=== PATIENT | female | born 1945 | race Caucasian/White ===

== ENCOUNTER → 2017-10-27 | Day surgery (SDC) | payer MEDICARE ==
[2017-10-26 13:10] LABS: BASOPHILS # (AUTO) 0.1 (0.0-0.1); BASOPHILS % 1.2 % (0.0-1.0); EOSINOPHILS # (AUTO) 0.2 (0.0-0.4); HEMATOCRIT 40.1 % (34.2-44.1); HEMOGLOBIN 13.2 g/dL (12.0-16.0); LYMPHOCYTES # (AUTO) 1.9 (1.0-3.2); MEAN CORPUSCULAR HEMOGLOBIN 31.4 pg (28-32); MEAN CORPUSCULAR HGB CONC 32.9 g/dL (31-35); MEAN CORPUSCULAR VOLUME 95.2 fL (81-99); MONOCYTES # (AUTO) 0.6 (0.2-0.8); MONOCYTES % 8.4 % (4.4-11.3); NEUTROPHILS # (AUTO) 4.2 (2.1-6.9); NEUTROPHILS % 60.3 % (38.7-80.0); PLATELET COUNT 258 x10e3/uL (140-360); RED BLOOD COUNT 4.21 x10e6/uL (3.6-5.1); RED CELL DISTRIBUTION WIDTH 15.6 % (11.7-14.4)
[2017-10-26 13:17] LABS: INR 0.86; PROTHROMBIN TIME 12.2 seconds (11.9-14.5)
[2017-10-26 13:29] LABS: ALBUMIN 3.9 g/dL (3.5-5.0); ALBUMIN/GLOBULIN RATIO 1.1 (0.8-2.0); ANION GAP 12.8 mmol/L (8-16); CALCIUM 9.5 mg/dL (8.4-10.2); CHOL/HDL RATIO 2.7 (3.0-3.6); CREATININE, SERUM 0.98 mg/dL (0.57-1.11); POTASSIUM 4.8 mmol/L (3.5-5.1)
[~2017-10-27] VITALS: Ht 152.4 cm; Wt 44.9 kg
[~2017-10-27] MED LIST: ASPIR-LOW81 MG PO; FENTANYL CITRATE/PF 100MCG/2 ML INJ ONE; HEPARIN SOD/SOD CHLORIDE 2,000 ML ONE; IOPAMIDOL 370 MG/ML 200 ML INFUS..BTL INJ ONE; LASIX20 MG PO; LIDOCAINE HCL 2% LOCAL 20 ML VIAL ONE; LISINOPRIL10 MG PO; MIDAZOLAM HCL 2 MG/2 ML VIAL ONE; PAXIL CR12.5 MG PO; TOPAMAX25 MG PO; TRAZODONE HCL50 MG PO; VITAMIN B-121000 MCG PO; VITAMIN D1000 UNI1 PO; ZOMIG5 MG PO
--- NOTE | 2017-10-28 11:17 | Operative Report ---
DATE OF PROCEDURE: October 27, 2017 INDICATIONS: Coronary artery disease. PROCEDURES PERFORMED: 1. Left heart catheterization, selective coronary angiography. 2. Deployment of right groin Angio-Seal. COMPLICATIONS: None. RECOMMENDATIONS: Medical therapy with CT of the chest to assess aneurysm. Access obtained in the right femoral artery. A 6-Maori sheath was placed. Left coronary system was dominant. Minimal coronary artery disease. A 10% to 20% luminal irregularities. Excellent flow. No critical stenosis or occlusions. Right coronary artery is non-dominant. JL5 was used to cannulate the left coronary system. Right groin repaired using Angio-Seal. Patient discharged home same day. Job#: [id number]
== END | disposition home or self-care (01) ==
LOC: CATH LAB 05:00
PROVIDERS: ATTEND Internal Medicine Interventional Cardiology
DX: I25.119 Atherosclerotic heart disease of native coronary artery with unspecified angina pectoris (principal); I11.0 Hypertensive heart disease with heart failure; I50.9 Heart failure, unspecified; R94.39 Abnormal result of other cardiovascular function study; Z01.812 Encounter for preprocedural laboratory examination; Z82.49 Family history of ischemic heart disease and other diseases of the circulatory system
CPT/HCPCS: 36415; 80053; 80061; 85025; 85610; 93458; J2001; J2250; Q9967; 36140

== ENCOUNTER → 2017-11-06 | Outpatient (CLI) | payer MEDICARE ==
[~2017-11-06] MED LIST changes: -FENTANYL CITRATE/PF 100MCG/2 ML INJ ONE; -HEPARIN SOD/SOD CHLORIDE 2,000 ML ONE; -LIDOCAINE HCL 2% LOCAL 20 ML VIAL ONE; -MIDAZOLAM HCL 2 MG/2 ML VIAL ONE; +SODIUM CHLORIDE 0.9% 100 ML 100 ML ONE; +SODIUM CHLORIDE 0.9% 250ML 500 ML ONE
[2017-11-06 07:51] LABS: CREATININE, SERUM 0.96 mg/dL (0.57-1.11)
--- NOTE | 2017-11-06 09:21 | Diagnostic Imaging Report ---
CT scan chest. November 06, 2017 Clinical history: Aortic aneurysm Technique: Arterial phase CT chest performed after 100 mL Isovue-370 intravenous contrast. No enteric contrast. Coronal, sagittal and axial images generated from source data. 3-D volume rendered images of the aorta were generated at an independent workstation under physician supervision. Dose: 159.37 mGy-cm Comparison: None Findings: Aortic measurements at the level of: Valvular plane: 2.1 cm Sinus of Valsalva: 3.2 cm Sinotubular junction: 2.2 cm Aortic root: 2.8 cm Ascending aorta: 4 cm Proximal aortic arch: 2.8 cm Distal aortic arch: 2.8 cm Isthmus: 2.8 cm Distal descending aorta: 2.4 cm The aorta is tortuous throughout its length with mild atherosclerosis. No evidence of dissection, intramural hematoma or pseudoaneurysm. The left vertebral artery originates from the distal arch. Great vessels are otherwise with normal branching pattern. Mild atherosclerosis of the innominate artery origin. Image portions of the abdominal aorta are normal. Pulmonary arteries: Main PA diameter 2.6 cm. Mild prominence of the intraparenchymal pulmonary arteries. Heart and pericardium: Normal overall size, with mild prominence of the right atrium and ventricle. No pericardial effusion. Imaged segments of the coronary arteries are grossly unremarkable. Lungs: Biapical pleural parenchymal scar with a right apical 2 x 0.9 x 1.3 cm nodular component. Biapical centrilobular emphysema. Pleura: No effusions. Airways: Normal Lymph nodes: 1.9 x 1.8 cm right periaortic node within the posterior mediastinum (image 43, series 3). Skeleton: Intact. Soft tissues: Normal Impression: 1. Ascending aorta ectasia, with a maximal diameter of 4 cm. 2. Emphysema. 3. Biapical pleural-parenchymal scarring and thickening. Superimposed 2 x 0.9 x 1.3 cm right apical nodule, which may be a component of the noted scarring, or a superimposed nodule. 4. Posterior mediastinal lymphadenopathy measuring up to 1.8 cm. 5. Given the above noted pleural parenchymal scar/right apical nodularity and posterior mediastinal lymphadenopathy PET/CT is recommended to evaluate for further characterization of these findings. This report was generated with voice-recognition technology. Errors in air conditioner installer helper can occur. Please interpret accordingly and contact a radiologist if there are any questions regarding the report. Signed by: Dr. Daniel Maya M.D. on 11/06/2017 9:18 AM
== END ==
LOC: CT 07:02
PROVIDERS: ATTEND Internal Medicine Interventional Cardiology
DX: I71.2 Thoracic aortic aneurysm, without rupture (principal)
CPT/HCPCS: 36415; 71275; 82565; 84520; J7050; Q9967

== ENCOUNTER → 2018-07-08 | Outpatient (CLI) | payer MEDICARE, OTHER ==
[~2018-07-08] MED LIST changes: -IOPAMIDOL 370 MG/ML 200 ML INFUS..BTL INJ ONE; -SODIUM CHLORIDE 0.9% 100 ML 100 ML ONE; -SODIUM CHLORIDE 0.9% 250ML 500 ML ONE
--- NOTE | 2018-07-08 14:42 | Diagnostic Imaging Report ---
EXAM: CT Chest WITHOUT contrast 07/08/2018 12:55 PM INDICATION: \[id number] \S\1250 \S\PULMONARY OPACITIES COMPARISON: CTA chest 11/06/2017 TECHNIQUE: Chest was scanned utilizing a multidetector helical scanner from the lung apex through the level of the adrenal glands without administration of IV contrast. Absence of intravenous contrast decreases sensitivity for detection of lymphadenopathy and vascular pathology. Coronal and sagittal reformations were obtained. Routine protocol was performed. IV CONTRAST: None COMPLICATIONS: None RADIATION DOSE: Total DLP: 88.8 mGy*cm Estimated effective dose: (DLP x 0.015 x size factor) mSv CTDIvol has been reviewed. It is below the limits set by the Radiation Protocol Committee (RPC). FINDINGS: LINES/ TUBES: None. LUNGS AND AIRWAYS: Bilateral apical pleuroparenchymal scarring with a more discrete pleural-based right apical nodule measuring 13 x 17 mm remain stable since 11/06/2017. Few right apical calcified granuloma are also stable. Moderate bilateral upper lobe predominant centrilobular and paraseptal emphysema, stable. No new pulmonary nodules or consolidations. Airways are normal. PLEURA: The pleural spaces are clear. HEART AND MEDIASTINUM: The thyroid gland is normal. Stable 1.8 cm subcarinal noncalcified lymph node on series 3, image 42. No new lymphadenopathy. The heart is within normal limits. Moderate coronary artery calcifications. Stable ectasia of the ascending thoracic aorta (4 cm). There is no pericardial effusion. The main pulmonary artery normal in caliber. The thoracic aorta and pulmonary arteries are unremarkable. UPPER ABDOMEN: Unremarkable. BONES: Mild multilevel degenerative changes of the thoracic spine. SOFT TISSUES: Unremarkable. IMPRESSION: 1. Stable biapical pleuroparenchymal scarring with a more discrete 13 x 17 mm right apical pleural-based nodule since 11/06/2017. 2. Moderate bilateral emphysema. 3. Stable 1.8 cm subcarinal lymph node. Recommend follow-up CT chest without contrast in 12 months to demonstrate stability. Signed by: Dr. Sheila Marie M.D. on 07/08/2018 2:39 PM
== END ==
LOC: CT 12:43
PROVIDERS: ATTEND Internal Medicine
DX: J44.9 Chronic obstructive pulmonary disease, unspecified (principal)
CPT/HCPCS: 71250

== ENCOUNTER → 2018-09-29 | Outpatient (CLI) | payer MEDICARE, OTHER ==
--- NOTE | 2018-09-29 14:35 | Diagnostic Imaging Report ---
MRI SPINE LUMBAR WO HISTORY: Low back pain, lumbar spinal stenosis COMPARISON: Chest CT 07/08/2018 and 11/06/2017 TECHNIQUE: Sagittal T1, sagittal T2, sagittal STIR, axial T2, coronal T2, and axial proton density weighted images of the lumbar spine were obtained without contrast. DISCUSSION: Number of non-rib bearing lumbar vertebral bodies: 5. Alignment: Normal lordosis. Mild thoracolumbar dextroscoliosis is centered at approximately L1. Mild compensatory lumbar levoscoliosis is centered at approximately L4-L5. Vertebrae: No fractures, infection or neoplasm. Conus medullaris: Normal, ends at approximately L1-L2. Cauda equina: No masses or arachnoiditis. Posterior paraspinal muscles: Well preserved. No signal abnormalities. Soft tissues: No signal abnormalities. Mild to moderate multilevel disc degeneration is most prominent at L2-L3 and L4-L5. T12-L1: Mild left foraminal stenosis due to disc bulge and facet arthrosis. No significant canal or right foraminal stenosis. L1-L2: Mild left foraminal stenosis due to disc bulge and facet arthrosis. No significant canal or right foraminal stenosis. L2-L3: Mild left foraminal stenosis due to disc bulge and facet arthrosis. No significant canal or right foraminal stenosis. L3-L4: Mild bilateral foraminal stenoses due to disc bulge and facet arthrosis. No significant canal stenosis. L4-L5: Moderate right and mild left foraminal stenoses due to disc bulge and facet arthrosis. No significant canal stenosis. L5-S1: Moderate right and left foraminal stenoses due to disc bulge and facet arthrosis. No significant canal stenosis. IMPRESSION: 1. Mild to moderate multilevel disc degeneration, most prominent at L2-L3 and L4-L5. Associated mild thoracolumbar dextroscoliosis with mild compensatory lumbar levoscoliosis. 2. Multilevel bilateral degenerative foraminal stenoses - moderate on the right at L4-L5 and L5-S1. 3. No significant canal stenosis. Signed by: Dr. Hiro Kay M.D. on 09/29/2018 2:32 PM
== END ==
LOC: MRI 10:31
PROVIDERS: ATTEND Radiology Neuroradiology
DX: M48.061 Spinal stenosis, lumbar region without neurogenic claudication (principal)
CPT/HCPCS: 72148

== ENCOUNTER → 2018-10-09 | Outpatient (CLI) | payer MEDICARE, OTHER ==
[2018-10-09 08:57] LABS: BASOPHILS # (AUTO) 0.1 (0.0-0.1); BASOPHILS % 0.8 % (0.0-1.0); EOSINOPHILS # (AUTO) 0.4 (0.0-0.4); EOSINOPHILS % 6.6 % (0.0-6.0); HEMATOCRIT 41.4 % (34.2-44.1); HEMOGLOBIN 13.7 g/dL (12.0-16.0); LYMPHOCYTES # (AUTO) 1.8 (1.0-3.2); LYMPHOCYTES % 28.2 % (18.0-39.1); MEAN CORPUSCULAR HEMOGLOBIN 32.9 pg (28-32); MEAN CORPUSCULAR HGB CONC 33.1 g/dL (31-35); MEAN CORPUSCULAR VOLUME 99.3 fL (81-99); MONOCYTES # (AUTO) 0.4 (0.2-0.8); MONOCYTES % 6.6 % (4.4-11.3); NEUTROPHILS # (AUTO) 3.8 (2.1-6.9); NEUTROPHILS % 57.6 % (38.7-80.0); PLATELET COUNT 257 x10e3/uL (140-360); RED BLOOD COUNT 4.17 x10e6/uL (3.6-5.1); RED CELL DISTRIBUTION WIDTH 14.9 % (11.7-14.4)
[2018-10-09 09:21] LABS: ALBUMIN 3.9 g/dL (3.5-5.0); ALBUMIN/GLOBULIN RATIO 1.2 (0.8-2.0); CALCIUM 9.8 mg/dL (8.4-10.2); CREATININE, SERUM 1.02 mg/dL (0.57-1.11)
[2018-10-09 09:43] LABS: THYROID STIMULATING HORMONE 1.17 uIU/mL (0.350-4.940)
[2018-10-09 09:54] LABS: FREE THYROXINE INDEX 2.5542 (1.4-3.8)
[2018-10-09 10:37] LABS: ERYTHROCYTE SEDIMENTATION RATE 13 mm/hr (0-20)
== END ==
LOC: LAB 08:18
PROVIDERS: ATTEND Radiology Neuroradiology
DX: G60.3 Idiopathic progressive neuropathy (principal)
CPT/HCPCS: 36415; 80053; 82607; 84165; 84207; 84436; 84443; 84479; 85025; 85651; 86039; 86592

== ENCOUNTER → 2019-07-29 | Outpatient (CLI) | payer MEDICARE, OTHER ==
[~2019-07-29] MED LIST changes: +IOPAMIDOL 370 MG/ML 200 ML INFUS..BTL INJ ONE; +SODIUM CHLORIDE 0.9% 50ML 50 ML ONE
[2019-07-29 08:20] LABS: BLOOD UREA NITROGEN 7 mg/dL (7-26); BUN/CREATININE RATIO 9 (6-25); CREATININE, SERUM 0.82 mg/dL (0.57-1.11); EST GLOMERULAR FILTRATION RATE > 60 ML/MIN (60-)
--- NOTE | 2019-07-29 09:59 | Diagnostic Imaging Report ---
CT of the abdomen and pelvis History: Abdominal pain, weight loss Comparison: None available. Technique: Multidetector CT scanning of the abdomen and pelvis was performed from the level of the lung bases to the inferior pubic ramus, with IV contrast. DOSE REDUCTION: The examination was performed according to departmental dose-optimization program which includes automated exposure control, adjustment of the mA and/or kV according to patient size and/or use of iterative reconstruction technique. Discussion: There is a small right pleural effusion. A 9 mm left lower lobe pulmonary nodule is best appreciated on axial image 10. In the left hepatic lobe there is a 8 mm hypoattenuating lesion and a 5 mm hypoattenuating lesion which are too small to characterize. The gallbladder is present and nondistended. The common bile duct is dilated measuring up to 11 mm. The spleen is within normal limits. The bilateral adrenal glands are unremarkable. The pancreas is abnormal. The pancreatic duct is dilated throughout the entire pancreas measuring up to 14 mm in diameter. There is a questionable hypodense lesion in the region of the ampulla which measures approximately 13 mm in diameter The splenic vein appears thrombosed. The portal vein, SMV, and IMV are patent. The celiac axis, superior mesenteric artery, and ES are patent. The abdominal aorta is of normal course and caliber. The kidneys are normal in size and enhance symmetrically. There is no evidence of hydronephrosis. No renal calculi are identified. The stomach, small bowel, and large bowel are nondistended. There is no evidence of obstruction. There is trace perihepatic and pelvic ascites. The urinary bladder is within normal limits. No acute osseous abnormalities are identified. IMPRESSION: 1. Abnormal dilation of the pancreatic duct up to 14 mm in diameter. The common bile duct is also dilated up to 11 mm. A questionable hypodense lesion is seen in the region of the ampulla. Recommend further evaluation with MRI pancreas protocol with MRCP and possible EGD with EUS. 2. 9 mm left lower lobe pulmonary nodule. Recommend dedicated CT of the chest for further evaluation. 3. Incompletely characterized hypodense lesions in the left hepatic lobe. These can be further evaluated with MRI at the same time as the pancreas. 4. Small right pleural effusion and trace ascites. Signed by: Real Stone MD on 07/29/2019 9:56 AM
== END ==
LOC: CT 07:18
PROVIDERS: ATTEND Internal Medicine
DX: R10.9 Unspecified abdominal pain (principal); R63.4 Abnormal weight loss
CPT/HCPCS: 36415; 74177; 82565; 84520; Q9967

== ENCOUNTER → 2019-08-11 | Outpatient (CLI) | payer MEDICARE, OTHER ==
[~2019-08-11] MED LIST changes: +GADOBENATE DIMEGLUMINE 1 ML IV ONE; -IOPAMIDOL 370 MG/ML 200 ML INFUS..BTL INJ ONE
--- NOTE | 2019-08-11 10:05 | Diagnostic Imaging Report ---
MRI/MRCP of the abdomen, with and without contrast. History: Chronic abdominal pain, abnormal prior CT. Comparison: CT abdomen 07/29/2019. Technique: Multiplanar, multisequence imaging of the abdomen was performed pre- and post-IV administration of 10 cc of gadolinium. Dynamic enhanced images of the liver were included. 3-D MRCP fat-saturated sequence was performed post contrast with MIP reformations. Discussion: There is diffuse severe pancreatic ductal dilatation measuring up to 1.5 cm in the mid body. There is no visible enhancing pancreatic or ampullary mass. No filling defects are identified to suggest stones. Gallbladder is normal without evidence of stones or wall thickening. There is minimal intrahepatic biliary ductal dilatation. The CBD measures 9 mm in diameter. The liver contour and size are normal. There is no evidence of an enhancing lesion. 2 nonenhancing cysts are noted in the left hepatic lobe measuring 5 and 9 mm. The hepatic, portal, splenic, and mesenteric veins are patent. The portal vein is normal in size measuring 1.1 cm in diameter. There is no evidence of ascites. The spleen, kidneys, and adrenal glands are normal in appearance. The visualized loops of bowel and osseous structures are normal. There is no evidence of adenopathy. IMPRESSION: 1. Severe pancreatic ductal dilatation without visible obstructing ampullary mass or stone. 2. No evidence of cholelithiasis or choledocholithiasis. 3. Simple left hepatic cysts. Signed by: Magdiel Roman on 08/11/2019 10:01 AM
== END ==
LOC: MRI 07:27
PROVIDERS: ATTEND Internal Medicine
DX: R10.9 Unspecified abdominal pain (principal)
CPT/HCPCS: 74183; A9577